=== PATIENT | male | born 1985 | race African-American/Black ===

== ENCOUNTER 2025-02-20 12:54 | Emergency (ER) | payer MEDICAID ==
[~2025-02-20] VITALS: Ht 170.2 cm; Wt 86.4 kg
[2025-02-20] MEDS: CEPHALEXIN MONOHYDRATE 500 MG CAPSULE PO ONE (14:40)
[2025-02-20] MEDS: ACETAMINOPHEN 500 MG TABLET PO ONE (14:40)
[2025-02-20] MEDS: TraMADol HCL 50 MG TABLET PO ONE (14:40)
[2025-02-20 14:41] VITALS: BP 143/91; PULSE 77; RESP 16; TEMP 98.2; O2SAT 97
[2025-02-20] MEDS ORDERED: IBUP-1554 PO (14:41)
[2025-02-20] MEDS ORDERED: ACET-66 PO (14:41)
[2025-02-20] MEDS ORDERED: TRAM50TA5 PO (14:41)
[2025-02-20] MEDS ORDERED: PENI500T2 PO (14:41)
== END 2025-02-20 14:53 | disposition home or self-care (01) ==
LOC: EMS 12:55
DX: K04.7 Periapical abscess without sinus (principal); K08.89 Other specified disorders of teeth and supporting structures; J45.909 Unspecified asthma, uncomplicated; F15.10 Other stimulant abuse, uncomplicated; Z79.899 Other long term (current) drug therapy
CPT/HCPCS: 99284; Z7502; Z7610